=== PATIENT | male | born 1970 | race Two or more races ===

== ENCOUNTER → 2016-09-28 | Outpatient (CLI) | payer OTHER ==
--- NOTE | ~2016-09-28 | PUL ---
PATIENT'S NAME: DEONNA GARCIA [facility] AGE: 46 Y [address] ROOM: [place] [id number] LOCATION: [facility] ADMIT DATE: 09/28/2016 Pulmonary DISCHARGE DATE: FAMILY PHYSICIAN: PHYSICIAN, NO ATTENDING PHYSICIAN: Jimmy Min NAME OF PROCEDURE: Home sleep test DATE OF PROCEDURE: 09/28/16 TECH: SHAUN Yates SUMMARY: Patient underwent home sleep testing using a type III device and was studied for 8 hours 44 minutes. In that time there were 46 apneas and 163 hypopneas for an apnea/hypopnea index moderately elevated at 25 events per hour. Oxygen saturations ranged from 74%-92%. Heart rate ranged from 33-61 beats per minute. IMPRESSION: At least moderate obstructive sleep apnea. PLAN: Would suggest a CPAP titration study. Patient will receive results from the ordering provider. MD ESTHER BURTON/ /[id number] dtt: 10/06/16 0838 Kim David E. dtd: 10/03/16 1715
== END | disposition disaster alternative care site (69) ==
LOC: GSLP 09-25 21:00
DX: G47.33 Obstructive sleep apnea (adult) (pediatric) (principal); G47.10 Hypersomnia, unspecified; G47.9 Sleep disorder, unspecified
CPT/HCPCS: G0399